=== PATIENT | male | born 1950 | race Asian ===

== ENCOUNTER 2017-09-23 20:32 | Emergency (ER) | payer MEDICARE, MEDICAID ==
[~2017-09-23] VITALS: Ht 170.2 cm; Wt 68.0 kg
--- NOTE | 2017-09-23 21:00 | NUR ---
XRAY IN PROGRESS AT THE BEDSIDE.
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
--- NOTE | 2017-09-23 21:10 | NUR ---
[employer] HELPER IS AT THE BEDSIDE.
--- NOTE | 2017-09-23 21:10 | NUR ---
IN AND OUT CATH DONE. URNIE SAMPLET SENT TO LAB. APPROX 50 ML YELLOW CLEAR URINE OUTPUT NOTED.
[2017-09-23 21:16] LABS: BASOPHILS % (AUTO) 0.3 % (0.0-2.0); EOSINOPHILS % (AUTO) 0.1 % (0.0-6.0); HEMATOCRIT 36 % (39-51); HEMOGLOBIN 12.7 g/dL (13.5-17.5); LYMPHOCYTES # (AUTO) 0.6 /CMM (0.8-4.8); MEAN CORPUSCULAR HEMOGLOBIN 33 PG (26.0-33.0); MEAN CORPUSCULAR HGB CONC 35 g/dl (31.0-36.0); MEAN CORPUSCULAR VOLUME 94 fL (80-96); MONOCYTES # (AUTO) 0.4 /CMM (0.1-1.30); MONOCYTES % (AUTO) 4.9 % (2.0-12.0); NEUTROPHILS # (AUTO) 6.9 /CMM (1.8-8.9); NEUTROPHILS % (AUTO) 87.7 % (43.0-81.0); PLATELET COUNT (AUTO) 108 /CMM (150-450); RDW COEFFICIENT OF VARIATION 14.1 (11.5-15.0); RED BLOOD CELL COUNT(AUTO) 3.81 MIL/uL (4.5-6.0); WHITE BLOOD COUNT (AUTO) 7.9 K/uL (4.3-11.0)
[2017-09-23 21:18] LABS: APPEARANCE,URINE Clear (CLEAR); BILIRUBIN,URINE SMALL (NEGATIVE); BLOOD, URINE Large Ery/uL (NEGATIVE); COLOR,URINE Yellow (YELLOW); KETONES,URINE Trace (NEGATIVE); LEUKOCYTE ESTERASE ,URINE Negative (NEGATIVE); NITRITE, URINE Negative (NEGATIVE); PH,URINE 5.5 (5.0-8.0); PROTEIN,URINE 100 mg/dl (NEGATIVE); UGLUCOSE Negative (NEGATIVE); UROBILINOGEN,URINE 0.2 EU/dL (0.2)
[2017-09-23 21:28] LABS: CALCIUM, SERUM 10.1 mg/dL (8.5-10.1); CARBON DIOXIDE 26 mmol/L (21-32); CHLORIDE 111 mmol/L (98-107); CREATININE 1.5 mg/dL (0.6-1.3); GLUCOSE 114 mg/dL (74-106); POTASSIUM 3.7 mmol/L (3.5-5.1); SODIUM SERUM 145 mmol/L (136-145); UREA NITROGEN, BLOOD 25 mg/dL (7-18)
[2017-09-23 21:29] LABS: BACTERIA,URINE None seen /HPF (None Seen); RBC,URINE 21-50 /HPF (0-2); SQUAMOUS EPITHELIAL CELL,UR Moderate /HPF (None Seen); WBC,URINE 0-2 /HPF (0-3)
[2017-09-23 21:41] LABS: ALANINE AMINOTRANSFERASE 61 U/L (12-78); ALBUMIN 4.1 g/dL (3.4-5.0); ALKALINE PHOSPHATASE 54 U/L (46-116); ASPARTATE AMINOTRANSFERASE 57 U/L (15-37); BILIRUBIN,DIRECT 0.2 mg/dL (0.0-0.2); BILIRUBIN,TOTAL 0.8 mg/dL (0.2-1.0); TOTAL PROTEIN, SERUM 8.1 g/dL (6.4-8.2)
[2017-09-23 21:44] LABS: ACETAMINOPHEN < 2 ug/ml (10-30); SALICYLATE 0.4 mg/dL (2.8-20.0)
[2017-09-23 21:45] LABS: ALCOHOL, BLOOD < 3 mg/dL (0-0)
--- NOTE | 2017-09-23 21:45 | NUR ---
PT APPEARS TO BE RESTING COMFORTABLY WITH NO S/S OF PAIN.
--- NOTE | 2017-09-23 21:48 | NUR ---
CALLED [facility], FOR EVAL ETA 1 HR.
[2017-09-23 21:54] LABS: CREATINE KINASE, TOTAL 778 U/L (39-308); THYROID STIMULATING HORMONE 0.553 uIU/mL (0.358-3.74)
[2017-09-23 22:16] LABS: CREATINE KINASE MB 2.4 ng/mL (0-3.6)
--- NOTE | 2017-09-23 22:25 | NUR ---
[facility], ARRIVED AND IS REVIEWING THE PT'S CHART.
[2017-09-23 22:55] VITALS: BP 145/120
--- NOTE | 2017-09-23 22:56 | NUR ---
Patient discharged to home in stable condition. Written and verbal after care instructions given. Patient verbalizes understanding of instruction. pt ambulatory with a steady gait VITAL SIGNS WITHIN NORMAL LIMITS.
== END 2017-09-23 22:56 | disposition home or self-care (01) ==
LOC: ER 20:32
DX: F15.10 Other stimulant abuse, uncomplicated (principal); F20.9 Schizophrenia, unspecified; F31.9 Bipolar disorder, unspecified; F41.9 Anxiety disorder, unspecified
CPT/HCPCS: 36415; 51701; 71045; 80048; 80076; 80305; 80329; 81001; 82550; 82553; 84443; 85025; 99285; A4606; G0480 ×2; 81000-TC; Z7610

== ENCOUNTER 2017-11-26 18:04 | Emergency (ER) | payer OTHER, MEDICARE, MEDICAID ==
[~2017-11-26] VITALS: Ht 167.6 cm; Wt 54.0 kg
[2017-11-26] MEDS ORDERED: TDAP [DIPH/PERTUSSIS/TET] 0.5 ML VIAL IM ONE ×2 (19:00→21:03)
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
--- NOTE | 2017-11-26 21:11 | NUR ---
WOUND CARE PROVIDED. MEDICALLY CLEARED. D/C TO PD IN STABLE CONDITION.
[2017-11-26 21:12] VITALS: BP 115/62
== END 2017-11-26 21:12 ==
LOC: ER 18:06
DX: S00.01XA Abrasion of scalp, initial encounter (principal); S00.212A Abrasion of left eyelid and periocular area, initial encounter; S20.412A Abrasion of left back wall of thorax, initial encounter; S09.8XXA Other specified injuries of head, initial encounter; F15.10 Other stimulant abuse, uncomplicated; I10 Essential (primary) hypertension; F31.9 Bipolar disorder, unspecified; F20.9 Schizophrenia, unspecified; Y08.89XA Assault by other specified means, initial encounter; Y93.89 Activity, other specified; Y92.89 Other specified places as the place of occurrence of the external cause; Y99.8 Other external cause status
CPT/HCPCS: 70450; 72125; 99284; A4606; A6402; Z7610; 90715